=== PATIENT | female | born 1940 | race Caucasian/White ===

== ENCOUNTER 2017-02-05 11:07 | Inpatient (IN) | payer OTHER ==
[~2017-02-05] VITALS: Ht 175.3 cm; Wt 101.2 kg
[~2017-02-05 11:07] MED LIST: AMLODIPINE BESYL5 MG PO; ASPIR-LOW81 MG PO; CRESTOR10 MG PO; FUROSEMIDE20 MG PO; HYDROCHLOROTHIA25 MG PO; LABETALOL HCL200 MG PO; LORATADINE10 M2 PO; METFORMIN HCL500 MG PO; PRESERVISION T1 EACH PO
[2017-02-05 12:53] LABS: HEMATOCRIT 34.5 % (36.0-46.0); MCH 27.4 PG (29.0-34.0); MCHC 31.6 G/DL (30.0-36.0); MCV 86.7 FL (83-99); MEAN PLAT.VOLUME 10.6 uM^3 (9.5-12.4); PLATELET COUNT 155 K/uL (156-360); RBC DIS.WIDTH-CV 15.8 % (11.8-14.6); RBC DIS.WIDTH-SD 50.2 % (39-53); RED BLOOD COUNT 3.98 M/uL (3.80-5.20); WHITE BLOOD COUNT 6.5 K/uL (4.1-10.2)
[2017-02-05 12:59] LABS: CHLORIDE 101 mEq/L (99-109); POTASSIUM 4.3 mEq/L (3.7-5.4); SODIUM 141 mEq/L (136-147)
[2017-02-05 13:01] LABS: GLUCOSE 162 mg/dL (70-99)
[2017-02-05 13:02] LABS: ANION GAP 14 MEQ/L (2-14)
[2017-02-05 13:05] LABS: GFR ESTIMATE (CALCULATED) 18 mL/min/
[2017-02-05 13:06] LABS: UREA NITROGEN (BUN) 45 mg/dL (9-23)
[2017-02-05 13:12] LABS: TROP-I INTERPRETATION NEGATIVE; TROPONIN-I < 0.01 ng/mL (0.0-0.30)
[2017-02-05 18:15] LABS: POINT-OF-CARE METER ID UU13113675
[2017-02-05 19:56] VITALS: BP 103/51
[2017-02-05 21:54] LABS: HEMATOCRIT 33.6 % (36.0-46.0); MCH 28.1 PG (29.0-34.0); MCHC 32.1 G/DL (30.0-36.0); MCV 87.3 FL (83-99); RBC DIS.WIDTH-CV 16.1 % (11.8-14.6); RBC DIS.WIDTH-SD 51.4 % (39-53); RED BLOOD COUNT 3.85 M/uL (3.80-5.20)
[2017-02-05 22:06] LABS: ANION GAP 14 MEQ/L (2-14); CHLORIDE 103 MEQ/L (99-109); MAGNESIUM 2.1 mg/dl (1.3-2.7); POTASSIUM 4.9 MEQ/L (3.7-5.4); SAMPLE HEMOLYSIS CHECK 2; SAMPLE ICTERIC CHECK 0; SAMPLE LIPEMIA CHECK 0; SODIUM 139 MEQ/L (136-147); TOTAL BILIRUBIN 0.6 MG/DL (0.0-1.0)
[2017-02-05 22:12] LABS: ALKALINE PHOSPHATASE 78 IU/L (3-129); GFR ESTIMATE (CALCULATED) 18 mL/min/; GLUCOSE 127 mg/dL (70-99); UREA NITROGEN (BUN) 45 mg/dL (9-23)
[2017-02-05 22:56] LABS: PLATELET CLUMPS PRESENT - PLATELET COUNTS APPEARS DECREASED
[2017-02-05 22:57] LABS: PLATELET COUNT UNABLE TO REPORT K/uL (156-360)
[2017-02-06] VITALS (9 sets, daily range): BP systolic 76–111; BP diastolic 32–59
[2017-02-06 00:29] LABS: POINT-OF-CARE METER ID UU14162508; POINT-OF-CARE USER ID 609231305
[2017-02-06 05:59] LABS: POINT-OF-CARE METER ID UU14162508; POINT-OF-CARE USER ID 609231305
[2017-02-06 06:48] LABS: MCH 27.8 PG (29.0-34.0); MCHC 31.5 G/DL (30.0-36.0); MCV 88.2 FL (83-99); MEAN PLAT.VOLUME 11.3 uM^3 (9.5-12.4); RBC DIS.WIDTH-CV 16.2 % (11.8-14.6); RBC DIS.WIDTH-SD 52.6 % (39-53); RED BLOOD COUNT 3.74 M/uL (3.80-5.20); WHITE BLOOD COUNT 3.7 K/uL (4.1-10.2)
[2017-02-06 07:23] LABS: ALKALINE PHOSPHATASE 80 IU/L (3-129); ANION GAP 16 MEQ/L (2-14); CHLORIDE 103 MEQ/L (99-109); GFR ESTIMATE (CALCULATED) 18 mL/min/; GLUCOSE 122 mg/dL (70-99); MAGNESIUM 1.8 mg/dl (1.3-2.7); POTASSIUM 4.2 MEQ/L (3.7-5.4); SAMPLE HEMOLYSIS CHECK 0; SAMPLE ICTERIC CHECK 0; SAMPLE LIPEMIA CHECK 0; SODIUM 142 MEQ/L (136-147); TOTAL BILIRUBIN 0.7 MG/DL (0.0-1.0); UREA NITROGEN (BUN) 48 mg/dL (9-23)
[2017-02-06 08:04] LABS: ATYPICAL LYMPHOCYTE 0.9 %; BAND NEUTROPHILS 30.7 % (0-8.0); BASOPHILS 0.9 %; LYMPHOCYTES 4.4 % (15.0-45.0); SEG.NEUTROPHILS 43.9 % (46.0-76.0)
[2017-02-06 08:05] LABS: PLAT.SUFFICIENCY NORMAL
[2017-02-06 08:37] LABS: ABS NEUTROPHIL COUNT 2.8; EOSINOPHIL ABS CT 0; INSTRUMENT ABS NEUTROPHIL CT 2.6 K/uL; PLATELET CLUMPS PRESENT - PLATELET COUNT APPEARS ADQ.
[2017-02-06 12:44] LABS: POINT-OF-CARE METER ID UU14162508
[2017-02-06 16:57] LABS: POINT-OF-CARE METER ID UU14162508
[2017-02-06] MEDS ORDERED: HYDROCHLOROTH12.5 M3 PO (19:15)
[2017-02-06] MEDS ORDERED: CARVEDILOL12.5 MG PO (19:17)
[2017-02-06] MEDS ORDERED: LORATADINE10 M2 PO (19:18)
[2017-02-06] MEDS ORDERED: SPIRONOLACTONE25 MG PO (19:18)
[2017-02-06] MEDS ORDERED: LISINOPRIL20 MG PO (19:19)
[2017-02-06] MEDS ORDERED: FOLIC ACID0.8 MG PO (19:20)
[2017-02-06] MEDS ORDERED: IRON325 MG PO (19:21)
[2017-02-06] MEDS ORDERED: B-121000 MC2 PO (19:21)
[2017-02-06 20:46] LABS: TROP-I INTERPRETATION NEGATIVE; TROPONIN-I 0.05 ng/mL (0.0-0.30)
[2017-02-06 22:16] LABS: POINT-OF-CARE METER ID UU14162508
[2017-02-07] VITALS (27 sets, daily range): BP systolic 70–108; BP diastolic 25–50
[2017-02-07 06:38] LABS: HEMATOCRIT 28.3 % (36.0-46.0); MCHC 32.2 G/DL (30.0-36.0); MCV 87.1 FL (83-99); MEAN PLAT.VOLUME 11.1 uM^3 (9.5-12.4); RBC DIS.WIDTH-CV 16.5 % (11.8-14.6); RBC DIS.WIDTH-SD 52.4 % (39-53); RED BLOOD COUNT 3.25 M/uL (3.80-5.20); WHITE BLOOD COUNT 4.3 K/uL (4.1-10.2)
[2017-02-07 06:45] LABS: POINT-OF-CARE METER ID UU14162508
[2017-02-07 07:09] LABS: Estimated Average Glucose 154 mg/dL (70-123)
[2017-02-07 07:11] LABS: ALKALINE PHOSPHATASE 84 IU/L (3-129); ANION GAP 15 MEQ/L (2-14); CHLORIDE 101 MEQ/L (99-109); GLUCOSE 132 mg/dL (70-99); MAGNESIUM 1.7 mg/dl (1.3-2.7); POTASSIUM 3.8 MEQ/L (3.7-5.4); SAMPLE HEMOLYSIS CHECK 0; SAMPLE ICTERIC CHECK 0; SAMPLE LIPEMIA CHECK 0; SODIUM 139 MEQ/L (136-147); UREA NITROGEN (BUN) 63 mg/dL (9-23)
[2017-02-07 07:12] LABS: GFR ESTIMATE (CALCULATED) 9 mL/min/
[2017-02-07 07:45] LABS: ABS NEUTROPHIL COUNT 3.1; BAND NEUTROPHILS 41.7 % (0-8.0); EOSINOPHIL ABS CT 0; EOSINOPHILS 0.9 % (0-5.0); INSTRUMENT ABS NEUTROPHIL CT 2.8 K/uL; LYMPHOCYTES 13.9 % (15.0-45.0); PLAT.SUFFICIENCY DECREASED; PLATELET CLUMPS PRESENT - PLATELET C; SEG.NEUTROPHILS 31.3 % (46.0-76.0); TOXIC GRANULATION 2+
[2017-02-07 08:41] LABS: C DIFF TOXIN NEGATIVE (NEGATIVE); PROBE CHECK PASS; SPECIMEN PROCESSING CONTROL PASS
[2017-02-07 11:50] LABS: POINT-OF-CARE METER ID UU14162508
[2017-02-07 14:09] LABS: ADD MIUA? YES; BILIRUBIN SMALL; BLOOD LARGE; COLOR DK YELLOW ((YELLOW)); GLUCOSE (STRIP) NEGATIVE; KETONES SMALL; LEUKOCYTES TRACE; NITRITE NEGATIVE; PROTEIN (STRIP) TRACE; UROBILINOGEN 0.2 MG/DL (0.2-1.0)
[2017-02-07 14:20] LABS: EPITHELIAL CELLS RARE /HPF; WHITE BLOOD CELLS 0-5 /HPF (0-5)
[2017-02-07 14:21] LABS: MUCUS NONE SEEN /LPF
[2017-02-07 14:22] LABS: BACTERIA 1+ /HPF; CASTS PRESENT /LPF; COARSE GRANULAR CASTS 0-5 /LPF; CRYSTALS NONE SEEN; FINE GRANULAR CASTS 0-5 /LPF; HYALINE CASTS 0-5 /LPF
[2017-02-07 14:29] LABS: METH RESISTANT S AUREUS PCR POSITIVE (NEGATIVE)
[2017-02-07 14:33] LABS: PROBE CHECK PASS
[2017-02-07 17:49] LABS: POINT-OF-CARE METER ID UU13113803; POINT-OF-CARE USER ID 606021424
[2017-02-07 20:07] LABS: UR CREATININE CONCENTRATION 277.8 MG/DL
[2017-02-07 22:32] LABS: POINT-OF-CARE METER ID UU13113803
[2017-02-08] VITALS (15 sets, daily range): BP systolic 89–126; BP diastolic 39–65
[2017-02-08 05:56] LABS: HEMATOCRIT 26.9 % (36.0-46.0); MCH 27.7 PG (29.0-34.0); MCV 86.5 FL (83-99); MEAN PLAT.VOLUME 11.2 uM^3 (9.5-12.4); RBC DIS.WIDTH-CV 16.3 % (11.8-14.6); RBC DIS.WIDTH-SD 51.7 % (39-53); RED BLOOD COUNT 3.11 M/uL (3.80-5.20); WHITE BLOOD COUNT 4.1 K/uL (4.1-10.2)
[2017-02-08 06:36] LABS: ANION GAP 10 MEQ/L (2-14); CHLORIDE 106 MEQ/L (99-109); GFR ESTIMATE (CALCULATED) 13 mL/min/; GLUCOSE 126 mg/dL (70-99); POTASSIUM 3.6 MEQ/L (3.7-5.4); SAMPLE HEMOLYSIS CHECK 0; SAMPLE ICTERIC CHECK 0; SAMPLE LIPEMIA CHECK 0; SODIUM 141 MEQ/L (136-147); UREA NITROGEN (BUN) 58 mg/dL (9-23)
[2017-02-08 07:09] LABS: ANISOCYTOSIS 1+; ATYPICAL LYMPHOCYTE 0.9 %; EOSINOPHIL ABS CT 0; INSTRUMENT ABS NEUTROPHIL CT 2.8 K/uL; LYMPHOCYTES 9.9 % (15.0-45.0); METAMYELOCYTES 1.8 %; PLAT.SUFFICIENCY DECREASED
[2017-02-08 07:39] LABS: BAND NEUTROPHILS 17.1 % (0-8.0); PLATELET COUNT 131 K/uL (156-360); SEG.NEUTROPHILS 56.8 % (46.0-76.0)
[2017-02-08 11:44] LABS: POINT-OF-CARE METER ID UU13113748
[2017-02-08 17:10] LABS: POINT-OF-CARE METER ID UU13113748
[2017-02-08 21:21] LABS: POINT-OF-CARE METER ID UU13113748
[2017-02-09] VITALS (8 sets, daily range): BP systolic 112–144; BP diastolic 57–66
[2017-02-09 06:56] LABS: ALKALINE PHOSPHATASE 99 IU/L (3-129); ANION GAP 10 MEQ/L (2-14); CHLORIDE 112 MEQ/L (99-109); GLUCOSE 112 mg/dL (70-99); POTASSIUM 3.5 MEQ/L (3.7-5.4); SAMPLE HEMOLYSIS CHECK 0; SAMPLE ICTERIC CHECK 0; SAMPLE LIPEMIA CHECK 0; SODIUM 144 MEQ/L (136-147); UREA NITROGEN (BUN) 44 mg/dL (9-23)
[2017-02-09 06:57] LABS: GFR ESTIMATE (CALCULATED) 21 mL/min/; TOTAL BILIRUBIN 0.4 MG/DL (0.0-1.0)
[2017-02-09 07:34] LABS: HEMATOCRIT 27.5 % (36.0-46.0); MCH 27.4 PG (29.0-34.0); MCHC 31.6 G/DL (30.0-36.0); MCV 86.5 FL (83-99); MEAN PLAT.VOLUME 10.7 uM^3 (9.5-12.4); PLATELET COUNT 151 K/uL (156-360); RBC DIS.WIDTH-CV 16.7 % (11.8-14.6); RBC DIS.WIDTH-SD 52.7 % (39-53); RED BLOOD COUNT 3.18 M/uL (3.80-5.20); WHITE BLOOD COUNT 6.8 K/uL (4.1-10.2)
[2017-02-09 08:16] LABS: EOSINOPHIL (%) 0 % (0-5); IMMATURE GRANULOCYTE (%) 2.3 % (0.0-0.7); IMMATURE GRANULOCYTE COUNT 0.2 K/uL; INSTRUMENT ABS NEUTROPHIL CT 4.9 K/uL; LYMPHOCYTE COUNT 0.7 K/uL (1.0-2.8); MONOCYTE (%) 15.6 % (3-12); MONOCYTE COUNT 1.1 K/uL (0-0.8); NEUTROPHIL (%) 72.4 % (45-76); NEUTROPHIL COUNT 4.9 K/uL (1.8-6.4)
[2017-02-09 08:34] LABS: POINT-OF-CARE METER ID UU13113731
[2017-02-09 12:55] LABS: POINT-OF-CARE METER ID UU13113731
[2017-02-09 18:45] LABS: HEMATOLOGY COMMENT 1 SMEAR COMPATIBLE
[2017-02-09 22:14] LABS: POINT-OF-CARE METER ID UU13113803
[2017-02-10] VITALS (13 sets, daily range): BP systolic 100–147; BP diastolic 42–103
[2017-02-10 05:59] LABS: HEMATOCRIT 29.1 % (36.0-46.0); MCH 28.3 PG (29.0-34.0); MCHC 32.3 G/DL (30.0-36.0); MCV 87.7 FL (83-99); MEAN PLAT.VOLUME 10.3 uM^3 (9.5-12.4); PLATELET COUNT 164 K/uL (156-360); RBC DIS.WIDTH-CV 16.9 % (11.8-14.6); RBC DIS.WIDTH-SD 54.4 % (39-53); RED BLOOD COUNT 3.32 M/uL (3.80-5.20); WHITE BLOOD COUNT 7.1 K/uL (4.1-10.2)
[2017-02-10 06:44] LABS: ANION GAP 8 MEQ/L (2-14); CHLORIDE 113 MEQ/L (99-109); GFR ESTIMATE (CALCULATED) 27 mL/min/; GLUCOSE 130 mg/dL (70-99); POTASSIUM 3.9 MEQ/L (3.7-5.4); SAMPLE HEMOLYSIS CHECK 0; SAMPLE ICTERIC CHECK 0; SAMPLE LIPEMIA CHECK 0; SODIUM 145 MEQ/L (136-147); UREA NITROGEN (BUN) 33 mg/dL (9-23)
[2017-02-10 08:14] LABS: ABS NEUTROPHIL COUNT 5.4; ANISOCYTOSIS 1+; ATYPICAL LYMPHOCYTE 5.2 %; BAND NEUTROPHILS 2.6 % (0-8.0); EOSINOPHIL ABS CT 0; INSTRUMENT ABS NEUTROPHIL CT 4.8 K/uL; LYMPHOCYTES 14.6 % (15.0-45.0); PLAT.SUFFICIENCY ADEQUATE; SEG.NEUTROPHILS 73.3 % (46.0-76.0)
[2017-02-10 12:45] LABS: POINT-OF-CARE METER ID UU13113731
[2017-02-10 17:10] LABS: POINT-OF-CARE METER ID UU13113731
[2017-02-11 07:48] VITALS: BP 162/77
[2017-02-11 10:06] LABS: ANION GAP 8 MEQ/L (2-14); CHLORIDE 111 MEQ/L (99-109); GFR ESTIMATE (CALCULATED) 36 mL/min/; GLUCOSE 190 mg/dL (70-99); SAMPLE HEMOLYSIS CHECK 0; SAMPLE ICTERIC CHECK 0; SAMPLE LIPEMIA CHECK 0; SODIUM 143 MEQ/L (136-147); UREA NITROGEN (BUN) 26 mg/dL (9-23)
[2017-02-11 15:28] VITALS: BP 167/76
[2017-02-11] MEDS ORDERED: METRONIDAZOLE500 MG PO (17:58)
[2017-02-11] MEDS ORDERED: DURICEF500 MG PO (17:59)
[2017-02-11 20:31] VITALS: BP 138/75
[2017-02-11 23:32] VITALS: BP 138/73
[2017-02-12 04:44] VITALS: BP 128/56
[2017-02-12 07:15] LABS: ANION GAP 10 MEQ/L (2-14); CHLORIDE 109 MEQ/L (99-109); GFR ESTIMATE (CALCULATED) 39 mL/min/; GLUCOSE 131 mg/dL (70-99); SAMPLE HEMOLYSIS CHECK 0; SAMPLE ICTERIC CHECK 0; SAMPLE LIPEMIA CHECK 0; SODIUM 143 MEQ/L (136-147); UREA NITROGEN (BUN) 25 mg/dL (9-23)
[2017-02-12 09:00] VITALS: BP 144/70
== END 2017-02-12 10:45 | disposition home health service (06) | DRG 853 ==
LOC: EME 11:07 → SDC 15:19 → EME 15:19 → 2SOUTH 18:03 → 2EAST 18:03 → 4WEST 02-07 12:56 → 2EAST 02-10 17:26
PROVIDERS: Emergency Medicine; Internal Medicine; Internal Medicine Critical Care Medicine; Internal Medicine Nephrology; Surgery
PROC: 0WUF4JZ Supplement Abdominal Wall with Synthetic Substitute, Percutaneous Endoscopic Approach (ICD-10-PCS; principal; 2017-02-05)
PROC: 02HV33Z Insertion of Infusion Device into Superior Vena Cava, Percutaneous Approach (ICD-10-PCS; 2017-02-07)
DX: A41.9 Sepsis, unspecified organism (principal); R65.21 Severe sepsis with septic shock; N17.0 Acute kidney failure with tubular necrosis; K65.1 Peritoneal abscess; R57.1 Hypovolemic shock; N18.3 Chronic kidney disease, stage 3 (moderate); K42.0 Umbilical hernia with obstruction, without gangrene; I13.0 Hypertensive heart and chronic kidney disease with heart failure and stage 1 through stage 4 chronic kidney disease, or unspecified chronic kidney disease; L97.919 Non-pressure chronic ulcer of unspecified part of right lower leg with unspecified severity; I50.9 Heart failure, unspecified; N20.0 Calculus of kidney; Z80.41 Family history of malignant neoplasm of ovary; D64.9 Anemia, unspecified; E11.22 Type 2 diabetes mellitus with diabetic chronic kidney disease; E11.42 Type 2 diabetes mellitus with diabetic polyneuropathy; E11.622 Type 2 diabetes mellitus with other skin ulcer; E11.65 Type 2 diabetes mellitus with hyperglycemia; E78.2 Mixed hyperlipidemia; E86.0 Dehydration; E86.1 Hypovolemia; E87.6 Hypokalemia; I25.10 Atherosclerotic heart disease of native coronary artery without angina pectoris; I25.5 Ischemic cardiomyopathy; I87.2 Venous insufficiency (chronic) (peripheral); I87.8 Other specified disorders of veins; I89.0 Lymphedema, not elsewhere classified; L97.929 Non-pressure chronic ulcer of unspecified part of left lower leg with unspecified severity; J98.11 Atelectasis; K57.30 Diverticulosis of large intestine without perforation or abscess without bleeding; E66.9 Obesity, unspecified; Z68.32 Body mass index [BMI] 32.0-32.9, adult; Z79.4 Long term (current) use of insulin; Z79.82 Long term (current) use of aspirin; Z79.84 Long term (current) use of oral hypoglycemic drugs; Z79.899 Other long term (current) drug therapy; Z90.710 Acquired absence of both cervix and uterus; Z72.0 Tobacco use; M79.89 Other specified soft tissue disorders
CPT/HCPCS: 71010; 74022; 74176; 76770; 80048; 80053; 81003; 82570; 82948; 83036; 83605; 83735; 83880; 84100; 84300; 84484; 85025; 85027; 87493; 87641; 88302; 93005; 94799; 97530 GO; 97530 GP; 99202; 99281; 99285; C1781; J0690; J1644; J1650; J1815; J2250; J2405; J2765; J3010; J7030; J7040; J7120; P9047; S0030